=== PATIENT | male | born 1965 | race Caucasian/White ===

== ENCOUNTER → 2024-12-10 09:45 | Outpatient (REF) | payer OTHER, SELFPAY | LOC: HWRAD 09:45 | PROVIDERS: ATTENDING PHYSICIAN Internal Medicine | DX: N50.89 Other specified disorders of the male genital organs (principal) | CPT/HCPCS: 76870; 93976 ==

== ENCOUNTER 2025-10-21 06:15 | Day surgery (SDC) | payer OTHER, SELFPAY ==
[2025-10-21 08:04] LABS: Glucose - Point of Care 79 mg/dl (70-99)
== END 2025-10-21 09:37 | disposition home or self-care (01) ==
LOC: GI 06:15
PROVIDERS: ATTENDING PHYSICIAN Internal Medicine Gastroenterology; FAMILY PHYSICIAN Internal Medicine
DX: Z12.11 Encounter for screening for malignant neoplasm of colon (principal); R19.5 Other fecal abnormalities; K64.8 Other hemorrhoids; D12.5 Benign neoplasm of sigmoid colon
CPT/HCPCS: 45385; 82962; 88305